=== PATIENT | male | born 1945 | race Caucasian/White ===

== ENCOUNTER 2020-05-11 21:34 | Inpatient (IN) | payer SELFPAY ==
[~2020-05-11] VITALS: Ht 152.4 cm; Wt 65.9 kg
[2020-05-11] MEDS ORDERED: ASPIRIN 81MG TABLET PO ONE (22:45)
[2020-05-11 22:53] LABS: BASOPHILS % 1.1 % (0.0-2.0); HEMATOCRIT. 41.2 % (42.0-52.0); HEMOGLOBIN. 13.9 g/dL (14.0-18.0); LYMPHOCYTES % 24.1 % (20.0-50.0); MONOCYTES % 7.8 % (2.0-8.0); PLATELET 267 x1000/uL (130-400); RED BLOOD CELL COUNT 4.48 mill/uL (4.7-6.1)
[2020-05-11 22:58] LABS: CHLORIDE 108 mEq/L (98-107)
[2020-05-11 23:01] LABS: INR 1.1; PROTHROMBIN TIME 11.2 sec (9.6-11.0)
[2020-05-11 23:03] LABS: ETHANOL BLOOD < 10 mg/dL
[2020-05-11 23:05] LABS: LDL CHOLESTEROL 129 mg/dL (5-100)
[2020-05-11] MEDS ORDERED: IOHEXOL-350 100 ML BOTTLE ONE (23:11)
[2020-05-11 23:28] LABS: CLARITY URINE CLEAR (CLEAR); COLOR URINE YELLOW (YELLOW); KETONES URINE NEGATIVE (NEGATIVE); LEUKOCYTE ESTERASE URINE NEGATIVE (NEGATIVE); NITRITE URINE NEGATIVE (NEGATIVE); OCCULT BLOOD URINE NEGATIVE (NEGATIVE); PH URINE 7.5 (4.5-8.0); PROTEIN URINE NEGATIVE (NEGATIVE); SPECIFIC GRAVITY URINE 1.022 (1.005-1.030); UROBILINOGEN URINE 0.2 E.U./dL (0.2-1.0)
[2020-05-11 23:41] LABS: METHADONE URINE SCREEN NEGATIVE (NEGATIVE); OPIATES URINE SCREEN NEGATIVE (NEGATIVE)
[2020-05-11 23:42] LABS: *AMPHETAMINES SCREEN URINE NEGATIVE (NEGATIVE); *BARBITURATES SCREEN URINE NEGATIVE (NEGATIVE); *BENZODIAZEPINES SCREEN URINE NEGATIVE (NEGATIVE); *COCAINE SCREEN URINE NEGATIVE (NEGATIVE); CANNABINOID URINE SCREEN PRESUMTIVE POSITIVE (NEGATIVE); PHENCYCLIDINE URINE SCREEN NEGATIVE (NEGATIVE)
[2020-05-11] MEDS ORDERED: ONDANSETRON HCL 4MG/2ML INJ IV PRN (23:45)
[2020-05-11] MEDS ORDERED: MAGNESIUM/ALUMINUM HYDROXIDE/SIMETHICONE 30ML UDC PO PRN (23:45)
[2020-05-11] MEDS ORDERED: DEXTROSE 50% WATER 50ML SYRINGE IV PRN (23:45)
[2020-05-11] MEDS ORDERED: DIPHENHYDRAMINE 50MG/ML VIAL IV PRN (23:45)
[2020-05-11] MEDS ORDERED: ACETAMINOPHEN 325MG TABLET PO PRN (23:45)
[2020-05-11] MEDS ORDERED: ZOLPIDEM TARTRATE 5MG TABLET PO PRN (23:45)
[2020-05-12] VITALS (7 sets, daily range): BP systolic 143–180; BP diastolic 74–101
[2020-05-12] MEDS ORDERED: METF-414 MT (01:27)
[2020-05-12] MEDS ORDERED: LISI40TA4 MT (01:28)
[2020-05-12] MEDS: SODIUM CHLORIDE 0.9% INJ 3ML FLUSH IVF SCH ×3 (06:14→21:58)
[2020-05-12] MEDS: BLOOD SUGAR DIAGNOSTIC STRIP TEST SCH ×4 (07:31→21:00)
[2020-05-12] MEDS: INSULIN LISPRO 100 UNITS/ML SUBCUT SCH ×4 (07:50→21:00)
[2020-05-12] MEDS ORDERED: BENAZEPRIL 5MG TABLET PO SCH (09:00)
[2020-05-12] MEDS: METFORMIN HCL 500MG TABLET PO SCH ×2 (09:07→17:24)
[2020-05-12] MEDS: ENOXAPARIN 40MG/0.4ML SYR SUBCUT SCH (09:08)
[2020-05-12] MEDS: ASPIRIN 81MG EC TABLET PO SCH (09:59)
[2020-05-12] MEDS: ACETAMINOPHEN 325MG TABLET PO PRN (12:01)
[2020-05-12] MEDS: CLONIDINE 0.1MG TABLET PO PRN (18:27)
[2020-05-12] MEDS: ATORVASTATIN CALCIUM 40MG TABLET PO SCH (21:57)
[2020-05-12] MEDS: CLOPIDOGREL 75MG TABLET PO SCH (21:57)
[2020-05-12] MEDS: BENAZEPRIL 10MG TABLET PO SCH (22:10)
[2020-05-13] VITALS (7 sets, daily range): BP systolic 117–169; BP diastolic 62–93
[2020-05-13] MEDS: SODIUM CHLORIDE 0.9% INJ 3ML FLUSH IVF SCH ×2 (06:32→14:43)
[2020-05-13] MEDS: BLOOD SUGAR DIAGNOSTIC STRIP TEST SCH ×4 (07:20→21:00)
[2020-05-13] MEDS: INSULIN LISPRO 100 UNITS/ML SUBCUT SCH ×4 (07:21→21:00)
[2020-05-13] MEDS: ASPIRIN 81MG EC TABLET PO SCH (08:27)
[2020-05-13] MEDS: ENOXAPARIN 40MG/0.4ML SYR SUBCUT SCH (08:27)
[2020-05-13] MEDS: METFORMIN HCL 500MG TABLET PO SCH ×2 (08:28→18:08)
[2020-05-13] MEDS: BENAZEPRIL 10MG TABLET PO SCH ×2 (08:28→21:33)
[2020-05-13] MEDS: CLOPIDOGREL 75MG TABLET PO SCH (08:28)
[2020-05-13] MEDS: ACETAMINOPHEN 325MG TABLET PO PRN (18:08)
[2020-05-13] MEDS: ATORVASTATIN CALCIUM 40MG TABLET PO SCH (21:32)
[2020-05-14] MEDS: CLONIDINE 0.1MG TABLET PO PRN (00:57)
[2020-05-14 03:55] VITALS: BP 141/73
[2020-05-14] MEDS: BLOOD SUGAR DIAGNOSTIC STRIP TEST SCH ×3 (07:27→17:52)
[2020-05-14] MEDS: INSULIN LISPRO 100 UNITS/ML SUBCUT SCH ×3 (07:28→17:50)
[2020-05-14 08:00] VITALS: BP 165/95
[2020-05-14] MEDS: ASPIRIN 81MG EC TABLET PO SCH (09:10)
[2020-05-14] MEDS: CLOPIDOGREL 75MG TABLET PO SCH (09:10)
[2020-05-14] MEDS: METFORMIN HCL 500MG TABLET PO SCH (09:10)
[2020-05-14] MEDS: ENOXAPARIN 40MG/0.4ML SYR SUBCUT SCH (09:11)
[2020-05-14] MEDS: BENAZEPRIL 10MG TABLET PO SCH (09:16)
[2020-05-14 12:00] VITALS: BP 136/76
[2020-05-14] MEDS: ACETAMINOPHEN 325MG TABLET PO PRN (14:13)
[2020-05-14 16:00] VITALS: BP 147/75
[2020-05-14 18:02] VITALS: BP 147/75
== END 2020-05-14 18:48 | disposition home or self-care (01) | DRG 45 ==
LOC: ER 21:34 → MICUSO 22:39 → EDBEDREQ 22:41 → EDBEDREQSVC 22:41 → EDBEDREQTM 22:41 → 6WST 05-12 00:20
PROVIDERS: ADMIT Internal Medicine; ATTEND Internal Medicine
DX: I63.9 Cerebral infarction, unspecified (principal); I10 Essential (primary) hypertension; E11.9 Type 2 diabetes mellitus without complications; E78.00 Pure hypercholesterolemia, unspecified; G46.7 Other lacunar syndromes; E78.5 Hyperlipidemia, unspecified; R29.810 Facial weakness; Z79.02 Long term (current) use of antithrombotics/antiplatelets; Z79.82 Long term (current) use of aspirin; Z79.899 Other long term (current) drug therapy; Z83.3 Family history of diabetes mellitus
CPT/HCPCS: 36415; 70496; 70498; 70551; 71045; 80053; 80305; 80320; 81003; 82962; 83036; 83721; 84484; 85025; 93005; 97110; 97162; 97166; 97530; 97535; 99291; J1650; J1815; Q9967; G0480

== ENCOUNTER 2021-06-09 13:10 | Emergency (ER) | payer MEDICAID, OTHER ==
[~2021-06-09] VITALS: Ht 167.6 cm; Wt 36.0 kg
[~2021-06-09 13:10] MED LIST: LISI40TA13 MT; METF-414 MT
[2021-06-09 14:36] LABS: BASOPHILS % 0.7 % (0.0-2.0); CHLORIDE 100 mEq/L (98-107); EOSINOPHILS % 0.2 % (0.0-5.0); HEMATOCRIT. 28.9 % (42.0-52.0); HEMOGLOBIN. 9.4 g/dL (14.0-18.0); LYMPHOCYTES % 16.4 % (20.0-50.0); MEAN CORPUSCULAR HEMOGLOBIN 27.8 pg (28.0-32.0); MEAN CORPUSCULAR VOLUME 85.8 fL (80.0-94.0); MEAN PLATELET VOLUME 7.8 fl (7.4-10.4); MONOCYTES % 3.2 % (2.0-8.0); NEUTROPHILS % 79.5 % (40.0-76.0); PLATELET 404 x1000/uL (130-400); RED BLOOD CELL COUNT 3.37 mill/uL (4.7-6.1); RED CELL DISTRIBUTION WIDTH 18.1 % (11.6-14.6)
[2021-06-09 14:52] LABS: CLARITY URINE TURBID (CLEAR); COLOR URINE DARK YELLOW (YELLOW); KETONES URINE TRACE (NEGATIVE); LEUKOCYTE ESTERASE URINE 3+ (NEGATIVE); NITRITE URINE NEGATIVE (NEGATIVE); OCCULT BLOOD URINE 2+ (NEGATIVE); PROTEIN URINE 2+ (NEGATIVE); SPECIFIC GRAVITY URINE 1.018 (1.005-1.030)
[2021-06-09] MEDS ORDERED: SODIUM CHLORIDE 0.9% 500 ML IV ONE (18:15)
[2021-06-09] MEDS ORDERED: CEFTRIAXONE 1 G PREMIX 50 ML IV ONE (18:15)
[2021-06-09 19:43] VITALS: BP 122/51
== END 2021-06-09 20:24 | disposition short-term general hospital (02) ==
LOC: ER 13:10 → CANBEDREQ 23:18
DX: E86.0 Dehydration (principal); N39.0 Urinary tract infection, site not specified; R55 Syncope and collapse; E11.9 Type 2 diabetes mellitus without complications; I10 Essential (primary) hypertension; E78.00 Pure hypercholesterolemia, unspecified; I69.354 Hemiplegia and hemiparesis following cerebral infarction affecting left non-dominant side; Z85.9 Personal history of malignant neoplasm, unspecified
CPT/HCPCS: 36415; 71045; 80053; 81003; 83880; 84484; 85025; 87077; 87086; 87186; 93005; 96365; 99285; J0696; J7040; A4315

== ENCOUNTER 2021-07-04 05:23 | Emergency (ER) | payer OTHER ==
[~2021-07-04] VITALS: Ht 175.3 cm; Wt 41.0 kg
[2021-07-04] MEDS ORDERED: SODIUM CHLORIDE 0.9% 1000ML BAG (SEPSIS BOLUS) IV ONE (06:00)
[2021-07-04 06:23] LABS: CHLORIDE 109 mEq/L (98-107)
[2021-07-04 06:27] LABS: INR 1.4
[2021-07-04 06:35] LABS: BASOPHILS % 0.3 % (0.0-2.0); EOSINOPHILS % 0.5 % (0.0-5.0); HEMATOCRIT. 23.3 % (42.0-52.0); HEMOGLOBIN. 7.3 g/dL (14.0-18.0); LYMPHOCYTES % 29.9 % (20.0-50.0); MEAN CORPUSCULAR HEMOGLOBIN 28.9 pg (28.0-32.0); MEAN CORPUSCULAR VOLUME 91.9 fL (80.0-94.0); MEAN PLATELET VOLUME 8.9 fl (7.4-10.4); MONOCYTES % 4.1 % (2.0-8.0); NEUTROPHILS % 65.2 % (40.0-76.0); PLATELET 111 x1000/uL (130-400); RED BLOOD CELL COUNT 2.54 mill/uL (4.7-6.1); RED CELL DISTRIBUTION WIDTH 17.8 % (11.6-14.6)
[2021-07-04 08:37] LABS: CLARITY URINE CLOUDY (CLEAR); COLOR URINE YELLOW (YELLOW); KETONES URINE NEGATIVE (NEGATIVE); LEUKOCYTE ESTERASE URINE NEGATIVE (NEGATIVE); NITRITE URINE NEGATIVE (NEGATIVE); OCCULT BLOOD URINE NEGATIVE (NEGATIVE); PROTEIN URINE 1+ (NEGATIVE); SPECIFIC GRAVITY URINE 1.016 (1.005-1.030)
[2021-07-04 11:45] VITALS: BP 109/64
== END 2021-07-04 12:41 | disposition short-term general hospital (02) ==
LOC: ER 05:23 → EDBEDREQSVC 09:09 → EDBEDREQTM 09:09 → EDBEDREQ 09:09 → ER 12:41 → CANBEDREQ 14:28
DX: G93.40 Encephalopathy, unspecified (principal); J44.9 Chronic obstructive pulmonary disease, unspecified; C80.1 Malignant (primary) neoplasm, unspecified; C79.9 Secondary malignant neoplasm of unspecified site; I10 Essential (primary) hypertension; E11.9 Type 2 diabetes mellitus without complications; E78.5 Hyperlipidemia, unspecified
CPT/HCPCS: 36415; 70450; 71045; 80053; 81003; 82962; 83605; 84145; 84484; 85025; 85610; 87040; 87086; 93005; 96360; 96361; 99285; J7030